=== PATIENT | male | born 1945 | race Caucasian/White ===

== ENCOUNTER 2019-02-28 16:06 | Emergency (ER) | payer MEDICARE, OTHER ==
[~2019-02-28] VITALS: Ht 167.6 cm; Wt 98.3 kg
[2019-02-28 16:14] VITALS: BP 152/87
[2019-02-28] MEDS ORDERED: OXYMETAZOLINE NASAL SPRAY 0.05%, 15ML NAS ONE (16:30)
--- NOTE | 2019-02-28 16:41 | NUR ---
PT HAD A HALF SHEET OF PLYWOOD, 2X8 FALL 5 FEET DISTANCE AND HIT PT IN NOSE. BLEEDING FROM LEFT NARE
[2019-02-28] MEDS ORDERED: OXYMETAZOLINE NASAL SPRAY 0.05%,30ML ONE (16:46)
--- NOTE | 2019-02-28 16:57 | NUR ---
ICE PACK PROVIDED TO PT. AT BEDSIDE EXAMINING PT AFTER RETURN FROM XRAY. MD GIVEN AFRAN ORDERED
[2019-02-28] MEDS ORDERED: CEPHALEXIN 500 MG CAPSULE PO ONE (17:30)
[2019-02-28] MEDS ORDERED: CEPHALEXIN 500 MG CAPSULE ONE (17:40)
--- NOTE | 2019-02-28 17:55 | NUR ---
NO BLEEDING FROM NOSE. TO BE DISCHARGED
== END 2019-02-28 17:58 | disposition home or self-care (01) ==
LOC: ED 17:16
DX: S02.2XXA Fracture of nasal bones, initial encounter for closed fracture (principal); S50.312A Abrasion of left elbow, initial encounter; S50.311A Abrasion of right elbow, initial encounter; S50.812A Abrasion of left forearm, initial encounter; S50.811A Abrasion of right forearm, initial encounter; W18.09XA Striking against other object with subsequent fall, initial encounter; Y93.89 Activity, other specified; Y92.89 Other specified places as the place of occurrence of the external cause; Y99.8 Other external cause status
CPT/HCPCS: 70160; 99283